=== PATIENT | female | born 1955 | race Caucasian/White ===

== ENCOUNTER 2016-12-11 13:16 | Inpatient (IN) | payer MEDICAID ==
[~2016-12-11] VITALS: Ht 165.1 cm; Wt 98.0 kg
[~2016-12-11 13:16] MED LIST: AMIT75TA2; ATEN50TA; CEPH250C PO; DOXY150C2 PO; FAMO-12; FENO145T20; FERR324T11; GLUC-202; GLYB5TAB8; HYDR-2551; INSLANTI; INSUINJ; LEVO137T3; LOSA50TA6; METF-371
[2016-12-11 14:17] LABS: Basophils # (auto) 0 uL; Basophils % (auto) 0.4 % (0.0-2.0); Eosinophils # (auto) 0.2 uL; Eosinophils % (auto) 2.3 % (0.0-7.0); Hematocrit 28.2 % (36.0-46.0); Hemoglobin 9.2 g/dL (12.2-16.2); Lymphocytes # (auto) 1.7 uL; Lymphocytes % (auto) 17.4 % (10.0-50.0); Mean Corpuscular Hemoglobin 28.4 pg (28.0-32.0); Mean Corpuscular Hgb Conc. 32.6 g/dL (32.0-36.0); Mean Corpuscular Volume 87.2 fL (80.0-100.0); Mean Platelet Volume 7.9 fL (6.9-10.8); Monocytes # (auto) 0.7 uL; Neutrophils % (auto) 72.9 % (37.0-80.0); Platelet Count (auto) 342 10^3/uL (140-450); Red Cell Distribution Width 14.3 % (11.8-14.3); White Blood Cell 9.7 10^3/uL (4.4-10.8)
[2016-12-11 14:35] LABS: Albumin 2.8 g/dL (3.4-5.0); BUN/Creatinine Ratio 20.6; Bilirubin, Total 0.3 mg/dL (0.2-1.0); Calcium 8.6 mg/dL (8.5-10.1); Potassium 4.5 mmol/L (3.5-5.1); Total Protein 8.1 g/dL (6.4-8.2)
[2016-12-12 00:09] LABS: B-Type Natriuretic Peptide 447.11 pg/mL (0-100)
[2016-12-12 00:12] LABS: Temperature: 23.9 C (20.0-25.0)
[2016-12-12] MEDS ORDERED: SODIUM CHLORIDE 0.9% 1,000 ML IV ONE (01:30)
[2016-12-12] MEDS ORDERED: SODIUM CHLORIDE 0.9% 1,000 ML IV SCH (01:44)
[2016-12-12] MEDS ORDERED: HYDROcodone-ACET 5/325MG TAB PO PRN (01:45)
[2016-12-12] MEDS ORDERED: DOCUSATE SOD 100 MG CAP PO PRN (01:45)
[2016-12-12] MEDS ORDERED: DEXTROSE (50%) 50ML SYRG IV PRN ×2 (01:45→11:15)
[2016-12-12] MEDS ORDERED: ONDANSETRON HCL 4 MG/2 ML VIAL IV PRN (01:45)
[2016-12-12 04:00] VITALS: BP 156/75
[2016-12-12] MEDS: ACCU-CHEK COMFORT CURVE STRIP VI SCH ×5 (04:00→21:48)
[2016-12-12 04:02] LABS: Urine Bilirubin Negative (Negative); Urine Blood Negative /uL (Negative); Urine Color Yellow (Yellow); Urine Glucose 1+ mg/dL (Normal); Urine Ketone Negative (Negative); Urine Nitrite Negative (Negative); Urine RBC 2 /hpf (0 - 4); Urine Squamous Epithelial Cell FEW /hpf (<5); Urine Urobilinogen Normal (Negative)
[2016-12-12] MEDS ORDERED: LOSA25TA9 PO (04:37)
[2016-12-12] MEDS ORDERED: LEVO112T35 PO (04:37)
[2016-12-12] MEDS ORDERED: ATEN100T PO ×2 (04:37)
[2016-12-12] MEDS ORDERED: HYDR12.56 PO (04:37)
[2016-12-12] MEDS ORDERED: ATOR20TA50 PO (04:37)
[2016-12-12] MEDS ORDERED: FER325T PO (04:37)
[2016-12-12] MEDS ORDERED: INSUINJ7 IJ (04:37)
[2016-12-12] MEDS ORDERED: AMIT75TA2 PO (04:37)
[2016-12-12] MEDS ORDERED: CHOL20007 PO (04:37)
[2016-12-12] MEDS ORDERED: FENO145T20 PO (04:37)
[2016-12-12] MEDS ORDERED: OMEP20CA74 PO (04:37)
[2016-12-12] MEDS ORDERED: INSLANTI SC (04:37)
[2016-12-12 04:39] VITALS: BP 156/75
[2016-12-12] MEDS: InsuLIN REG 1unit/0.01ml Soln (100units/ml) SC SCH ×5 (05:23→22:01)
[2016-12-12] MEDS: CLINDAMYCIN 600MG IV 50 ML IV SCH ×3 (05:51→21:46)
[2016-12-12 09:00] VITALS: BP 158/69
[2016-12-12] MEDS ORDERED: ENOXAPARIN SOD 30 MG/0.3 ML SYRINGE SC SCH (10:00)
[2016-12-12] MEDS: ENOXAPARIN SOD 40 MG/0.4 ML SYRINGE SC SCH (10:00)
[2016-12-12] MEDS: LOSARTAN POTASSIUM 25 MG TAB PO SCH (10:00)
[2016-12-12 13:00] VITALS: BP 153/71
[2016-12-12] MEDS ORDERED: POTASSIUM CHL 20 Meq TABLET PO ONE (15:30)
[2016-12-12] MEDS ORDERED: BUMETANIDE (0.25MG/ML) 4 ML VIAL IV ONE (15:30)
[2016-12-12 17:11] VITALS: BP 147/68
[2016-12-12] MEDS: AMITRIPTYLINE HCL 25 MG TAB PO SCH (21:45)
[2016-12-12] MEDS: ATORVASTATIN 20 MG TAB PO SCH (21:45)
[2016-12-12 22:00] VITALS: BP 161/80
[2016-12-12] MEDS: ACETAMINOPHEN 325 MG TAB PO PRN (22:00)
[2016-12-13] MEDS: CLINDAMYCIN 600MG IV 50 ML IV SCH ×3 (05:58→22:12)
[2016-12-13 06:22] LABS: Basophils # (auto) 0 uL; Basophils % (auto) 0.7 % (0.0-2.0); Eosinophils # (auto) 0.3 uL; Eosinophils % (auto) 4.3 % (0.0-7.0); Hematocrit 29.2 % (36.0-46.0); Hemoglobin 9.5 g/dL (12.2-16.2); Lymphocytes # (auto) 2.3 uL; Lymphocytes % (auto) 32.6 % (10.0-50.0); Mean Corpuscular Hemoglobin 28.3 pg (28.0-32.0); Mean Corpuscular Hgb Conc. 32.6 g/dL (32.0-36.0); Mean Corpuscular Volume 86.7 fL (80.0-100.0); Monocytes # (auto) 0.7 uL; Monocytes % (auto) 10.3 % (0.0-12.0); Neutrophils # (auto) 3.7 uL; Neutrophils % (auto) 52.1 % (37.0-80.0); Nucleated Red Blood Cells % 0.1 %; Platelet Count (auto) 353 10^3/uL (140-450); Red Cell Distribution Width 13.8 % (11.8-14.3); White Blood Cell 7.1 10^3/uL (4.4-10.8)
[2016-12-13 06:44] LABS: Albumin 2.5 g/dL (3.4-5.0); BUN/Creatinine Ratio 22.2; Bilirubin, Total 0.3 mg/dL (0.2-1.0); Calcium 8.5 mg/dL (8.5-10.1); Phosphorus 4.2 mg/dL (2.5-4.90); Potassium 4.3 mmol/L (3.5-5.1); Total Protein 7.5 g/dL (6.4-8.2)
[2016-12-13] MEDS: InsuLIN REG 1unit/0.01ml Soln (100units/ml) SC SCH ×4 (06:46→22:33)
[2016-12-13] MEDS: ACCU-CHEK COMFORT CURVE STRIP VI SCH ×4 (06:46→22:32)
[2016-12-13 09:03] VITALS: BP 119/52
[2016-12-13] MEDS: LOSARTAN POTASSIUM 25 MG TAB PO SCH (09:11)
[2016-12-13] MEDS: ENOXAPARIN SOD 40 MG/0.4 ML SYRINGE SC SCH (09:11)
[2016-12-13] MEDS: BUMETANIDE 1 MG TAB PO SCH (10:30)
[2016-12-13 13:00] VITALS: BP 158/69
[2016-12-13] MEDS ORDERED: MULTIPLE VITAMINS W/ MINERALS TAB PO ONE (15:15)
[2016-12-13 17:15] VITALS: BP 162/76
[2016-12-13 22:07] VITALS: BP 158/81
[2016-12-13] MEDS: ATORVASTATIN 20 MG TAB PO SCH (22:13)
[2016-12-13] MEDS: AMITRIPTYLINE HCL 25 MG TAB PO SCH (22:13)
[2016-12-13] MEDS: ASCORBIC ACID 500 MG TAB PO SCH (22:13)
[2016-12-14 05:05] VITALS: BP 126/53
[2016-12-14] MEDS: CLINDAMYCIN 600MG IV 50 ML IV SCH ×3 (06:19→21:50)
[2016-12-14] MEDS: ACCU-CHEK COMFORT CURVE STRIP VI SCH ×4 (06:20→22:18)
[2016-12-14 06:35] LABS: INR 1.08 (0.9-1.15); Prothrombin Time 11.8 sec (9.37-12.3)
[2016-12-14] MEDS: InsuLIN REG 1unit/0.01ml Soln (100units/ml) SC SCH ×4 (07:00→22:18)
[2016-12-14 08:15] VITALS: BP 147/67
[2016-12-14] MEDS: MULTIPLE VITAMINS W/ MINERALS TAB PO SCH (09:23)
[2016-12-14] MEDS: ASCORBIC ACID 500 MG TAB PO SCH ×2 (09:23→22:00)
[2016-12-14] MEDS: ENOXAPARIN SOD 40 MG/0.4 ML SYRINGE SC SCH (09:24)
[2016-12-14] MEDS: BUMETANIDE 1 MG TAB PO SCH (09:27)
[2016-12-14] MEDS: LOSARTAN POTASSIUM 25 MG TAB PO SCH (09:28)
[2016-12-14] MEDS ORDERED: ceFAZolin 1GM VL ONE (09:34)
[2016-12-14] MEDS ORDERED: BUPIVACAINE 0.75% INJ 10ML MPV SDV IJ ONE (09:34)
[2016-12-14] MEDS ORDERED: ceFAZolin 1GM/50ML D5W 50 ML IV ONE (09:55)
[2016-12-14] MEDS ORDERED: LABETALOL HCL 5 MG/ML 4ML SYRINGE IV PRN (10:15)
[2016-12-14] MEDS ORDERED: HYDROmorphone HCL 2 MG/ML VL IV PRN (10:15)
[2016-12-14] MEDS ORDERED: ONDANSETRON HCL 4 MG/2 ML VIAL IV ONE (10:15)
[2016-12-14] MEDS ORDERED: MIDAZOLAM HCL 1MG/1ML-2 ML VIAL IV PRN (10:15)
[2016-12-14] MEDS ORDERED: ePHEDrine SULFATE 50 MG/ML AMP IV PRN (10:15)
[2016-12-14] MEDS ORDERED: MORPHINE SULF INJ 2 MG/ML SYRINGE 1ML IV PRN (10:15)
[2016-12-14] MEDS ORDERED: ACCU-CHEK COMFORT CURVE STRIP VI ONE (10:15)
[2016-12-14] MEDS ORDERED: PROPOFOL 10 MG/ML 20 ML IV ONE (10:18)
[2016-12-14] MEDS ORDERED: fentaNYL CITRATE 100 MCG/2 ML VL ONE (10:18)
[2016-12-14] MEDS ORDERED: MIDAZOLAM HCL 1MG/1ML-2 ML VIAL ONE (10:18)
[2016-12-14] MEDS ORDERED: DEXAMETHASONE SOD PHOS 10MG/1ML VIAL INJ ONE (10:18)
[2016-12-14 11:21] VITALS: BP 122/63
[2016-12-14 13:38] VITALS: BP 122/63
[2016-12-14 17:03] VITALS: BP 141/76
[2016-12-14] MEDS: ATORVASTATIN 20 MG TAB PO SCH (21:51)
[2016-12-14] MEDS: AMITRIPTYLINE HCL 25 MG TAB PO SCH (21:51)
[2016-12-14] MEDS: ACETAMINOPHEN 325 MG TAB PO PRN (21:51)
[2016-12-14 22:00] VITALS: BP 140/73
[2016-12-14] MEDS ORDERED: ASCORBIC ACID 500 MG TAB PO SCH (22:00)
[2016-12-14] MEDS: INSULIN DETEMIR(LEVEMIR) 1unit/0.01ml Soln (100units/ml) SC SCH (22:18)
[2016-12-15 05:00] VITALS: BP 131/68
[2016-12-15] MEDS: CLINDAMYCIN 600MG IV 50 ML IV SCH ×3 (06:33→22:15)
[2016-12-15] MEDS: ACCU-CHEK COMFORT CURVE STRIP VI SCH ×4 (06:34→20:24)
[2016-12-15] MEDS: INSULIN DETEMIR(LEVEMIR) 1unit/0.01ml Soln (100units/ml) SC SCH ×2 (06:58→22:16)
[2016-12-15] MEDS: InsuLIN REG 1unit/0.01ml Soln (100units/ml) SC SCH ×4 (06:58→20:24)
[2016-12-15 07:01] LABS: Basophils # (auto) 0 uL; Basophils % (auto) 0.1 % (0.0-2.0); Eosinophils # (auto) 0 uL; Eosinophils % (auto) 0.1 % (0.0-7.0); Hematocrit 31.8 % (36.0-46.0); Hemoglobin 10.6 g/dL (12.2-16.2); Lymphocytes # (auto) 1.2 uL; Lymphocytes % (auto) 12.2 % (10.0-50.0); Mean Corpuscular Hemoglobin 28.9 pg (28.0-32.0); Mean Corpuscular Hgb Conc. 33.2 g/dL (32.0-36.0); Mean Corpuscular Volume 87.1 fL (80.0-100.0); Mean Platelet Volume 7.8 fL (6.9-10.8); Monocytes # (auto) 0.7 uL; Monocytes % (auto) 6.7 % (0.0-12.0); Neutrophils % (auto) 80.9 % (37.0-80.0); Platelet Count (auto) 403 10^3/uL (140-450); Red Cell Distribution Width 14.1 % (11.8-14.3); White Blood Cell 9.9 10^3/uL (4.4-10.8)
[2016-12-15 07:23] LABS: BUN/Creatinine Ratio 26.6; Calcium 8.7 mg/dL (8.5-10.1); Potassium 4.6 mmol/L (3.5-5.1)
[2016-12-15 09:00] VITALS: BP 132/71
[2016-12-15] MEDS ORDERED: MULTIPLE VITAMINS W/ MINERALS TAB PO SCH (10:00)
[2016-12-15] MEDS: BUMETANIDE 1 MG TAB PO SCH (11:01)
[2016-12-15] MEDS: LOSARTAN POTASSIUM 25 MG TAB PO SCH (11:02)
[2016-12-15] MEDS: ENOXAPARIN SOD 40 MG/0.4 ML SYRINGE SC SCH (11:03)
[2016-12-15] MEDS: SODIUM CHLORIDE 0.9% 1,000 ML IV SCH (11:45)
[2016-12-15] MEDS ORDERED: SODIUM CHLORIDE 0.9% 500 ML IV ONE (11:45)
[2016-12-15] MEDS: DOXYCYCLINE HYC 100MG/250ML 250 ML IV SCH (11:56)
[2016-12-15] MEDS: MULTIPLE VITAMINS W/ MINERALS TAB PO SCH (11:56)
[2016-12-15] MEDS: ASCORBIC ACID 500 MG TAB PO SCH ×2 (11:56→22:16)
[2016-12-15 13:00] VITALS: BP 124/59
[2016-12-15] MEDS ORDERED: InsuLIN REG 1unit/0.01ml Soln (100units/ml) SC SCH (14:00)
[2016-12-15 16:37] VITALS: BP 131/68
[2016-12-15 21:48] VITALS: BP 149/82
[2016-12-15] MEDS: AMITRIPTYLINE HCL 25 MG TAB PO SCH (22:15)
[2016-12-15] MEDS: ATORVASTATIN 20 MG TAB PO SCH (22:16)
[2016-12-16] MEDS: InsuLIN REG 1unit/0.01ml Soln (100units/ml) SC SCH ×4 (00:32→13:20)
[2016-12-16] MEDS: ACCU-CHEK COMFORT CURVE STRIP VI SCH ×4 (00:32→12:00)
[2016-12-16] MEDS: DOXYCYCLINE HYC 100MG/250ML 250 ML IV SCH ×2 (00:32→12:42)
[2016-12-16 04:56] VITALS: BP 136/77
[2016-12-16] MEDS: SODIUM CHLORIDE 0.9% 1,000 ML IV SCH ×2 (05:03→08:35)
[2016-12-16] MEDS: CLINDAMYCIN 600MG IV 50 ML IV SCH (06:06)
[2016-12-16] MEDS: INSULIN DETEMIR(LEVEMIR) 1unit/0.01ml Soln (100units/ml) SC SCH (06:06)
[2016-12-16 07:07] LABS: Albumin 2.7 g/dL (3.4-5.0); BUN/Creatinine Ratio 32.4; Calcium 8.8 mg/dL (8.5-10.1)
[2016-12-16 07:16] LABS: Bilirubin, Total 0.3 mg/dL (0.2-1.0); Total Protein 7.4 g/dL (6.4-8.2)
[2016-12-16 08:28] VITALS: BP 101/59
[2016-12-16] MEDS: ENOXAPARIN SOD 40 MG/0.4 ML SYRINGE SC SCH (08:47)
[2016-12-16] MEDS: ASCORBIC ACID 500 MG TAB PO SCH (08:47)
[2016-12-16] MEDS: MULTIPLE VITAMINS W/ MINERALS TAB PO SCH (08:47)
[2016-12-16 12:11] VITALS: BP 138/84
[2016-12-16 14:45] VITALS: BP 132/71
[2016-12-16 17:01] VITALS: BP 133/74
== END 2016-12-16 18:35 | disposition home or self-care (01) | DRG 364 ==
LOC: ER 13:16 → OVERFLOW 13:17 → EAST 12-12 03:30
PROVIDERS: ADMIT Internal Medicine; ATTEND Internal Medicine
PROC: 0KBW0ZZ Excision of Left Foot Muscle, Open Approach (ICD-10-PCS; principal; 2016-12-14 10:05)
DX: E11.621 Type 2 diabetes mellitus with foot ulcer (principal); L97.529 Non-pressure chronic ulcer of other part of left foot with unspecified severity; N17.0 Acute kidney failure with tubular necrosis; E11.21 Type 2 diabetes mellitus with diabetic nephropathy; E44.0 Moderate protein-calorie malnutrition; L03.116 Cellulitis of left lower limb; E87.1 Hypo-osmolality and hyponatremia; I50.9 Heart failure, unspecified; N18.9 Chronic kidney disease, unspecified; D64.9 Anemia, unspecified
CPT/HCPCS: 36415; 71010; 73630; 73700; 74176; 76775; 80048; 80053; 81001; 82270; 82570; 82728; 82947; 82962; 83036; 83540; 83550; 83605; 83880; 84100; 84156; 84300; 84484; 85025; 85610; 85730; 86850; 86900; 86901; 87040; 87077; 87086; 87186; 87205; 93005; 93306; 93926; 96360; J0690; J1100; J1815; J2250; J2704; J3490

== ENCOUNTER → 2019-04-02 | Outpatient (CLI) | payer MEDICAID, OTHER ==
[~2019-04-02] MED LIST changes: -AMIT75TA2; +AMIT75TA2 PO; +ASP81EC PO; -ATEN50TA; +ATOR20TA50 PO; -CEPH250C PO; +CHOL20007 PO; -DOXY150C2 PO; +ESTR0.3T PO; -FAMO-12; -FENO145T20; +FENO145T27 PO; +FER325T PO; -FERR324T11; +FURO1TAB31 PO; -GLUC-202; -GLYB5TAB8; -HYDR-2551; -INSLANTI; +INSLANTI SC; -INSUINJ; +INSUINJ7 IJ; +LEVO112T35 PO; -LEVO137T3; -LOSA50TA6; +MAGN400T40 PO; +MET25T PO; -METF-371; +NITR1CAP23 PO; +OMEP20CA74 PO; +ROSU20TA14 PO; +SEMA2INJ SC; +TICA90TA PO
--- NOTE | 2019-04-02 13:28 | NUR ---
PICC line removal Pt presented with RUE single lumen PICC line. Written order from Srinivasan POMPA to D/C PICC line today. Insertion site has no redness, swelling, or leaking noted. Pt denies any pain at site. Dressing is clean, dry, and in tact. PICC line removed with proper technique, catheter fully intact at 44 cm in length. Last visit noted insertion length at 44 cm. Occlusive pressure dressing applied to site. No bleeding noted. Patient tolerated well. D/C home with son.
== END | disposition home or self-care (01) ==
LOC: CATH 13:00
DX: Z45.2 Encounter for adjustment and management of vascular access device (principal)

== ENCOUNTER → 2019-04-26 | Outpatient (CLI) | payer OTHER, MEDICAID | END | disposition home or self-care (01) | LOC: Rad HDHVI 09:58 | PROVIDERS: ATTEND Internal Medicine Cardiovascular Disease | DX: M79.662 Pain in left lower leg (principal) | CPT/HCPCS: 93926 ==

== ENCOUNTER → 2019-09-29 | Outpatient (CLI) | payer OTHER, MEDICAID ==
[~2019-09-29] MED LIST changes: -ASP81EC PO; +ASPI-394 PO
== END | disposition home or self-care (01) ==
LOC: Rad HDHVI 13:22
PROVIDERS: ATTEND Internal Medicine Cardiovascular Disease
DX: I50.43 Acute on chronic combined systolic (congestive) and diastolic (congestive) heart failure (principal); R07.89 Other chest pain; Z95.820 Peripheral vascular angioplasty status with implants and grafts
CPT/HCPCS: 93306

== ENCOUNTER → 2019-11-15 | Outpatient (CLI) | payer OTHER, MEDICAID ==
[~2019-11-15] VITALS: Ht 167.6 cm; Wt 83.9 kg
[~2019-11-15] MED LIST changes: +ADENOSINE 70 MG in GIVE UN-DILUTED 0 ML IV ONE; +ADENOSINE 90 MG/30 ML INJ IV ONE
== END | disposition home or self-care (01) ==
LOC: Rad HDHVI 14:19
PROVIDERS: ATTEND Internal Medicine Cardiovascular Disease
DX: I11.0 Hypertensive heart disease with heart failure (principal); I50.43 Acute on chronic combined systolic (congestive) and diastolic (congestive) heart failure; I25.10 Atherosclerotic heart disease of native coronary artery without angina pectoris; E11.9 Type 2 diabetes mellitus without complications; E78.00 Pure hypercholesterolemia, unspecified; R07.89 Other chest pain; Z95.820 Peripheral vascular angioplasty status with implants and grafts
CPT/HCPCS: 78452; 93005; 96374; 96375; A9500; J0153

== ENCOUNTER → 2021-07-04 | Outpatient (CLI) | payer OTHER, MEDICAID ==
[~2021-07-04] VITALS: Ht 165.1 cm; Wt 86.2 kg
[~2021-07-04] MED LIST changes: -ADENOSINE 70 MG in GIVE UN-DILUTED 0 ML IV ONE; +ADENOSINE 72 MG in GIVE UN-DILUTED 0 ML IV ONE; -AMIT75TA2 PO; +AMIT75TA4 PO; +LEVO112T2 PO; -LEVO112T35 PO
== END | disposition home or self-care (01) ==
LOC: Rad HDHVI 09:34
PROVIDERS: ATTEND Internal Medicine Cardiovascular Disease
DX: I10 Essential (primary) hypertension (principal); I25.10 Atherosclerotic heart disease of native coronary artery without angina pectoris; E78.5 Hyperlipidemia, unspecified; E11.9 Type 2 diabetes mellitus without complications; R07.9 Chest pain, unspecified; Z82.49 Family history of ischemic heart disease and other diseases of the circulatory system
CPT/HCPCS: 78452; 93005; 96374; 96375; A9500; J0153

== ENCOUNTER → 2021-09-07 | Outpatient (CLI) | payer OTHER, MEDICAID ==
[~2021-09-07] MED LIST changes: -ADENOSINE 72 MG in GIVE UN-DILUTED 0 ML IV ONE; -ADENOSINE 90 MG/30 ML INJ IV ONE; +CIPR-173 PO; +INSLISPI SC; +SODI650T PO
[2021-09-07 10:25] VITALS: BP 143/57
[2021-09-07 10:40] VITALS: BP 117/54
[2021-09-07 12:34] LABS: Basophils # (auto) 0 10 ^3/uL (0-0.2); Basophils % (auto) 0.3 % (0.0-2.0); Eosinophils # (auto) 0.2 10 ^3/uL (0-0.8); Eosinophils % (auto) 2.9 % (0.0-7.0); Hematocrit 29.7 % (36.0-46.0); Hemoglobin 9.5 g/dL (12.2-16.2); Lymphocytes # (auto) 1.5 10 ^3/uL (0.4-5.4); Lymphocytes % (auto) 24.1 % (10.0-50.0); Mean Corpuscular Hemoglobin 29.6 pg (28.0-32.0); Mean Corpuscular Volume 92.5 fL (80.0-100.0); Monocytes # (auto) 0.4 10 ^3/uL (0-1.3); Monocytes % (auto) 6.6 % (0.0-12.0); Neutrophils # (auto) 4.1 10 ^3/uL (1.6-8.6); Neutrophils % (auto) 66.1 % (37.0-80.0); Red Blood Cells 3.21 10^6/uL (4.0-5.20); White Blood Cell 6.2 10^3/uL (4.4-10.8)
[2021-09-07 12:51] LABS: Potassium 3.8 mmol/L (3.5-5.1)
[2021-09-07 12:53] LABS: INR 0.99 (0.9-1.15); Partial Thromboplastin Time 25.6 sec (24.6-33.4)
[2021-09-07 12:58] LABS: BUN/Creatinine Ratio 16.1; Calcium 8.7 mg/dL (8.5-10.1)
== END | disposition home or self-care (01) ==
LOC: Rad HDHVI 10:04
PROVIDERS: ATTEND Internal Medicine Cardiovascular Disease
DX: Z01.818 Encounter for other preprocedural examination (principal); R06.02 Shortness of breath; I10 Essential (primary) hypertension; I25.5 Ischemic cardiomyopathy; M47.814 Spondylosis without myelopathy or radiculopathy, thoracic region
CPT/HCPCS: 36415; 71046; 80048; 85025; 85610; 85730; G0463

== ENCOUNTER → 2021-09-10 | Outpatient (CLI) | payer OTHER, MEDICAID ==
[~2021-09-10] MED LIST changes: +ANGIOMAX 250 MG VIAL IV ONE; -ATOR20TA50 PO; -CHOL20007 PO; -INSUINJ7 IJ; +IODIXANOL 320MG/ML 100ML BTL IV ONE; +LIDOCAINE 2%HCL (LOCAL ANESTH.) INJ 10ml MDV ONE; -MAGN400T40 PO; -MET25T PO; +MIDAZOLAM HCL 2MG/2ML 2ml VIAL (1mg/ml) ONE; -NITR1CAP23 PO; +SODIUM CHL 0.9% 50 ML ONE; +SODIUM CHLORIDE 0.9% 1,000 ML IV ONE; +fentaNYL CITRATE 100 MCG/2 ML VL ONE
[2021-09-10 10:58] VITALS: BP 142/61
[2021-09-10 14:00] VITALS: BP 178/80
== END | disposition home or self-care (01) ==
LOC: CHF HDHVI 10:57
PROVIDERS: ATTEND Internal Medicine Cardiovascular Disease
DX: R94.4 Abnormal results of kidney function studies (principal); E86.0 Dehydration; I10 Essential (primary) hypertension; I25.10 Atherosclerotic heart disease of native coronary artery without angina pectoris; E78.5 Hyperlipidemia, unspecified; E11.40 Type 2 diabetes mellitus with diabetic neuropathy, unspecified; E11.51 Type 2 diabetes mellitus with diabetic peripheral angiopathy without gangrene; Z90.710 Acquired absence of both cervix and uterus; Z79.02 Long term (current) use of antithrombotics/antiplatelets; Z79.82 Long term (current) use of aspirin; Z79.4 Long term (current) use of insulin; Z95.1 Presence of aortocoronary bypass graft
CPT/HCPCS: 36415; 82565; 84520; 96360; 96361; G0463; J7040; 96366

== ENCOUNTER 2021-09-11 10:48 | Day surgery (SDC) | payer OTHER, MEDICAID ==
[~2021-09-11] VITALS: Ht 167.6 cm; Wt 86.2 kg
[~2021-09-11 10:48] MED LIST changes: -ANGIOMAX 250 MG VIAL IV ONE; -IODIXANOL 320MG/ML 100ML BTL IV ONE; -LIDOCAINE 2%HCL (LOCAL ANESTH.) INJ 10ml MDV ONE; -MIDAZOLAM HCL 2MG/2ML 2ml VIAL (1mg/ml) ONE; -SODIUM CHL 0.9% 50 ML ONE; -SODIUM CHLORIDE 0.9% 1,000 ML IV ONE; -fentaNYL CITRATE 100 MCG/2 ML VL ONE
[2021-09-11] MEDS ORDERED: GENTAMICIN PER PHARMACY 0 ML IV ONE ×2 (13:30)
[2021-09-11] MEDS ORDERED: GENTAMICIN SULFATE 180 MG in D5W 5% 100 ML IV ONE (14:00)
[2021-09-11] MEDS ORDERED: cloNIDine HCL 0.1 MG TAB PO ONE (14:30)
== END 2021-09-11 15:20 | disposition home or self-care (01) ==
LOC: CATH 10:48
PROVIDERS: ATTEND Internal Medicine Cardiovascular Disease
DX: R94.39 Abnormal result of other cardiovascular function study (principal); I25.10 Atherosclerotic heart disease of native coronary artery without angina pectoris; I10 Essential (primary) hypertension; E78.5 Hyperlipidemia, unspecified; E11.40 Type 2 diabetes mellitus with diabetic neuropathy, unspecified; E11.21 Type 2 diabetes mellitus with diabetic nephropathy; E11.51 Type 2 diabetes mellitus with diabetic peripheral angiopathy without gangrene; Z79.4 Long term (current) use of insulin; Z79.82 Long term (current) use of aspirin; Z79.02 Long term (current) use of antithrombotics/antiplatelets; Z90.710 Acquired absence of both cervix and uterus; Z95.5 Presence of coronary angioplasty implant and graft; Z98.891 History of uterine scar from previous surgery; Z82.49 Family history of ischemic heart disease and other diseases of the circulatory system; Z83.3 Family history of diabetes mellitus; Z80.1 Family history of malignant neoplasm of trachea, bronchus and lung; Z87.19 Personal history of other diseases of the digestive system; Z20.822 Contact with and (suspected) exposure to COVID-19
CPT/HCPCS: 92978; 93454; C1760; C1769; C1887; C1894; J0583; J1580; J1644; J2001; J2250; J3010; J7030; J7060; Q9967; U0003; 99152

== ENCOUNTER → 2021-11-20 | Outpatient (CLI) | payer OTHER, MEDICAID ==
[~2021-11-20] MED LIST changes: +CIPR250T3 PO; +MULT-1018 PO; +TEMA15CA2 PO
[2021-11-20 09:28] VITALS: BP 135/64
[2021-11-20 09:58] VITALS: BP 132/63
[2021-11-20 12:46] LABS: Basophils # (auto) 0 10 ^3/uL (0-0.2); Basophils % (auto) 0.4 % (0.0-2.0); Eosinophils # (auto) 0.2 10 ^3/uL (0-0.8); Hematocrit 31.7 % (36.0-46.0); Hemoglobin 10.1 g/dL (12.2-16.2); Lymphocytes % (auto) 35.3 % (10.0-50.0); Mean Corpuscular Hemoglobin 30.2 pg (28.0-32.0); Mean Corpuscular Hgb Conc. 31.8 g/dL (32.0-36.0); Mean Corpuscular Volume 94.9 fL (80.0-100.0); Monocytes # (auto) 0.5 10 ^3/uL (0-1.3); Neutrophils % (auto) 52.3 % (37.0-80.0); Red Blood Cells 3.34 10^6/uL (4.0-5.20); Red Cell Distribution Width 13.4 % (11.8-14.3); White Blood Cell 5.8 10^3/uL (4.4-10.8)
[2021-11-20 12:58] LABS: BUN/Creatinine Ratio 14.4; Calcium 8.5 mg/dL (8.5-10.1)
[2021-11-20 13:11] LABS: INR 1.03 (0.9-1.15); Partial Thromboplastin Time 26.5 sec (24.6-33.4)
== END | disposition home or self-care (01) ==
LOC: Rad HDHVI 09:15
PROVIDERS: ATTEND Internal Medicine Cardiovascular Disease
DX: Z01.818 Encounter for other preprocedural examination (principal); R06.02 Shortness of breath; I70.0 Atherosclerosis of aorta; M47.814 Spondylosis without myelopathy or radiculopathy, thoracic region
CPT/HCPCS: 36415; 71046; 80048; 85025; 85610; 85730; G0463

== ENCOUNTER 2021-11-22 07:01 | Day surgery (SDC) | payer OTHER, MEDICAID ==
[~2021-11-22] VITALS: Ht 167.6 cm; Wt 88.0 kg
[2021-11-22] VITALS (7 sets, daily range): BP systolic 153–166; BP diastolic 74–88
[~2021-11-22 07:01] MED LIST changes: -CIPR-173 PO; -FER325T PO
[2021-11-22] MEDS ORDERED: ANGIOMAX 250 MG VIAL IV ONE (09:42)
[2021-11-22] MEDS ORDERED: LIDOCAINE 2%HCL (LOCAL ANESTH.) INJ 20ML MDV ONE (09:43)
[2021-11-22] MEDS ORDERED: SODIUM CHL 0.9% 50 ML ONE (09:43)
[2021-11-22] MEDS ORDERED: MIDAZOLAM HCL 2MG/2ML 2ml VIAL (1mg/ml) ONE (09:43)
[2021-11-22] MEDS ORDERED: fentaNYL CITRATE 100 MCG/2 ML VL ONE (09:43)
[2021-11-22] MEDS ORDERED: IOHEXOL 350 MG/ML 100ML IJ ONE (09:44)
[2021-11-22] MEDS ORDERED: IODIXANOL 320MG/ML 100ML BTL IV ONE (09:44)
[2021-11-22] MEDS ORDERED: ASPirin 81 mg TAB ONE (10:16)
[2021-11-22] MEDS ORDERED: TICAGRELOR 90 MG TAB ONE ×2 (10:16→10:21)
== END 2021-11-22 12:40 | disposition home or self-care (01) ==
LOC: CATH 07:01
PROVIDERS: ATTEND Internal Medicine Cardiovascular Disease
DX: R07.9 Chest pain, unspecified (principal); I25.10 Atherosclerotic heart disease of native coronary artery without angina pectoris; N18.1 Chronic kidney disease, stage 1; I12.9 Hypertensive chronic kidney disease with stage 1 through stage 4 chronic kidney disease, or unspecified chronic kidney disease; E78.5 Hyperlipidemia, unspecified; I25.2 Old myocardial infarction; Z90.710 Acquired absence of both cervix and uterus; Z82.49 Family history of ischemic heart disease and other diseases of the circulatory system; Z83.3 Family history of diabetes mellitus; Z87.891 Personal history of nicotine dependence; Z80.1 Family history of malignant neoplasm of trachea, bronchus and lung; Z80.0 Family history of malignant neoplasm of digestive organs; Z20.822 Contact with and (suspected) exposure to COVID-19
CPT/HCPCS: 93454; 93571; C1760; C1769; C1874; C1887; C1894; C9600; J0583; J1644; J2250; J3010; Q9967; U0003; 99152

== ENCOUNTER → 2022-01-25 | Outpatient (CLI) | payer OTHER, MEDICAID | END | disposition home or self-care (01) | LOC: Rad HDHVI 13:01 | PROVIDERS: ATTEND Internal Medicine Cardiovascular Disease | DX: R07.89 Other chest pain (principal); E78.5 Hyperlipidemia, unspecified | CPT/HCPCS: 93306 ==

== ENCOUNTER → 2022-03-13 | Outpatient (CLI) | payer MEDICAID ==
[~2022-03-13] VITALS: Ht 167.6 cm; Wt 86.2 kg
[~2022-03-13] MED LIST changes: +ADENOSINE 72 MG in GIVE UN-DILUTED 0 ML IV ONE; +ADENOSINE 90 MG/30 ML INJ IV ONE
[2022-03-13 16:16] LABS: Urine Blood Negative /uL (Negative); Urine Specific Gravity 1.008 (1.001-1.035)
== END | disposition home or self-care (01) ==
LOC: Rad HDHVI 14:00
PROVIDERS: ATTEND Internal Medicine Cardiovascular Disease
DX: N39.0 Urinary tract infection, site not specified (principal)
CPT/HCPCS: 78452; 81003; 87086; 93005; 96374; 96375; J0153

== ENCOUNTER 2022-05-10 15:59 | Inpatient (IN) | payer OTHER, MEDICAID ==
[~2022-05-10] VITALS: Ht 167.6 cm; Wt 91.6 kg
[~2022-05-10 15:59] MED LIST changes: -ADENOSINE 72 MG in GIVE UN-DILUTED 0 ML IV ONE; -ADENOSINE 90 MG/30 ML INJ IV ONE
[2022-05-10] MEDS ORDERED: HYDROcodone-ACET 10/325MG TAB PO ONE (16:15)
[2022-05-10 16:39] LABS: Basophils # (auto) 0 10 ^3/uL (0-0.2); Hemoglobin 7.8 g/dL (12.2-16.2); Monocytes # (auto) 0.4 10 ^3/uL (0-1.3)
[2022-05-10 16:41] LABS: Basophils % (auto) 0.4 % (0.0-2.0); Eosinophils # (auto) 0 10 ^3/uL (0-0.8); Eosinophils % (auto) 0.7 % (0.0-7.0); Lymphocytes # (auto) 0.9 10 ^3/uL (0.4-5.4); Lymphocytes % (auto) 12.5 % (10.0-50.0); Mean Corpuscular Hgb Conc. 32.5 g/dL (32.0-36.0); Mean Corpuscular Volume 92.4 fL (80.0-100.0); Monocytes % (auto) 6.1 % (0.0-12.0); Neutrophils # (auto) 5.6 10 ^3/uL (1.6-8.6); Neutrophils % (auto) 80.3 % (37.0-80.0); Red Blood Cells 2.59 10^6/uL (4.0-5.20); Red Cell Distribution Width 15.4 % (11.8-14.3); White Blood Cell 6.9 10^3/uL (4.4-10.8)
[2022-05-10 16:55] LABS: Albumin 2.9 g/dL (3.4-5.0); BUN/Creatinine Ratio 23.3; Calcium 8.6 mg/dL (8.5-10.1); Potassium 4.2 mmol/L (3.5-5.1)
[2022-05-10 16:58] LABS: Bilirubin, Total 0.5 mg/dL (0.2-1.0); Total Protein 6.6 g/dL (6.4-8.2)
[2022-05-10 18:53] LABS: Urine Bacteria FEW /hpf (None Seen); Urine Blood 3+ /uL (Negative); Urine Specific Gravity 1.011 (1.001-1.035); Urine WBC 82 /hpf (0 - 5)
[2022-05-10] MEDS ORDERED: cefTRIAXone SOD 1,000 MG VL IM ONE (20:15)
[2022-05-10] MEDS ORDERED: AZITHROMYCIN 250 MG TAB PO ONE (21:30)
[2022-05-10] MEDS ORDERED: ACETAMINOPHEN 325 MG TAB PO PRN (22:30)
[2022-05-10] MEDS ORDERED: ALBUMIN 25% 100 ML IV ONE (22:30)
[2022-05-10] MEDS ORDERED: DEXTROSE (50%) 50ML SYRG IV PRN (22:30)
[2022-05-10] MEDS ORDERED: HEPARIN SODIUM (PORCINE) 5000 UNITS/ML 1ML VIAL SC ONE (22:30)
[2022-05-10] MEDS ORDERED: ONDANSETRON HCL 4 MG/2 ML VIAL IV PRN (22:30)
[2022-05-10] MEDS ORDERED: IBUPROFEN 600 MG TAB PO PRN (23:00)
[2022-05-11] MEDS ORDERED: NITROGLYCERIN 0.4 MG SL TAB SL PRN
[2022-05-11] MEDS ORDERED: MORPHINE SULFATE INJ 2 MG/ml SYRG IV PRN
[2022-05-11] MEDS: cefTRIAXone 1GM/50ML D5W 50 ML IV SCH ×2 (00:10→21:15)
[2022-05-11] MEDS: AZITHROMYCIN 500MG/ 250ML 250 ML IV SCH ×2 (02:11→22:10)
[2022-05-11 05:49] LABS: Basophils # (auto) 0 10 ^3/uL (0-0.2); Basophils % (auto) 0.3 % (0.0-2.0); Eosinophils # (auto) 0.1 10 ^3/uL (0-0.8); Monocytes # (auto) 0.4 10 ^3/uL (0-1.3); Neutrophils # (auto) 4.6 10 ^3/uL (1.6-8.6); Nucleated Red Blood Cells % 0.1 %
[2022-05-11 05:52] LABS: Hematocrit 22.1 % (36.0-46.0); Hemoglobin 7.2 g/dL (12.2-16.2); Lymphocytes # (auto) 1.3 10 ^3/uL (0.4-5.4); Lymphocytes % (auto) 19.7 % (10.0-50.0); Mean Corpuscular Hemoglobin 30.4 pg (28.0-32.0); Mean Corpuscular Hgb Conc. 32.6 g/dL (32.0-36.0); Mean Corpuscular Volume 93.3 fL (80.0-100.0); Monocytes % (auto) 5.5 % (0.0-12.0); Neutrophils % (auto) 72.5 % (37.0-80.0); Red Blood Cells 2.36 10^6/uL (4.0-5.20); Red Cell Distribution Width 15.8 % (11.8-14.3); White Blood Cell 6.4 10^3/uL (4.4-10.8)
[2022-05-11] MEDS: SODIUM CHLOR 0.9% PF (SALINE LOCK) 10ML VIAL/SYR IV SCH ×3 (06:05→22:03)
[2022-05-11] MEDS: HYDROcodone-ACET 5/325MG TAB PO PRN ×3 (06:05→19:43)
[2022-05-11 06:25] LABS: Albumin 3.1 g/dL (3.4-5.0); BUN/Creatinine Ratio 21.1; Calcium 8.5 mg/dL (8.5-10.1)
[2022-05-11 06:27] LABS: Bilirubin, Total 0.5 mg/dL (0.2-1.0); Total Protein 7.2 g/dL (6.4-8.2)
[2022-05-11] MEDS: ACCU-CHEK COMFORT CURVE STRIP VI SCH ×4 (06:39→22:10)
[2022-05-11] MEDS: InsuLIN REG 1unit/0.01ml Soln (100units/ml) SC SCH ×4 (06:49→22:12)
[2022-05-11] MEDS: LEVOTHYROXINE SODIUM 112 MCG TAB PO SCH (06:49)
[2022-05-11 07:53] LABS: Potassium 4.3 mmol/L (3.5-5.1)
[2022-05-11] MEDS: FAMOTIDINE (10MG/ML) 2ML VL IV SCH ×2 (11:03→21:17)
[2022-05-11] MEDS: B-COMPLEX W/ C & FOLIC ACID(NEPHROVITE TAB) PO SCH (11:03)
[2022-05-11] MEDS: FUROSEMIDE 40 MG/4 ML VIAL IV SCH (11:12)
[2022-05-11] MEDS: HEPARIN SODIUM (PORCINE) 5000 UNITS/ML 1ML VIAL SC SCH ×2 (11:15→22:00)
[2022-05-11 13:44] VITALS: BP 118/65
[2022-05-11] MEDS ORDERED: dilTIAZem 25 MG/5 ML VIAL IV PRN (14:45)
[2022-05-11] MEDS ORDERED: dilTIAZem HCL 60 MG TAB GT SCH (14:45)
[2022-05-11 17:08] VITALS: BP 118/65
[2022-05-11 22:00] VITALS: BP 112/53
[2022-05-11] MEDS: ATORVASTATIN 20 MG TAB PO SCH (22:02)
[2022-05-12 04:53] LABS: Protein, Urine 90.2 mg/dL (0.0-11.9)
[2022-05-12 05:00] VITALS: BP 111/59
[2022-05-12] MEDS: SODIUM CHLOR 0.9% PF (SALINE LOCK) 10ML VIAL/SYR IV SCH ×3 (06:00→22:01)
[2022-05-12 06:12] LABS: Basophils # (auto) 0 10 ^3/uL (0-0.2); Eosinophils # (auto) 0.2 10 ^3/uL (0-0.8); Hemoglobin 7.2 g/dL (12.2-16.2); Mean Corpuscular Volume 93.4 fL (80.0-100.0); Monocytes # (auto) 0.6 10 ^3/uL (0-1.3); Nucleated Red Blood Cells % 0.1 %; White Blood Cell 7.7 10^3/uL (4.4-10.8)
[2022-05-12 06:15] LABS: Basophils % (auto) 0.6 % (0.0-2.0); Eosinophils % (auto) 2.9 % (0.0-7.0); Hematocrit 21.9 % (36.0-46.0); Lymphocytes # (auto) 1.6 10 ^3/uL (0.4-5.4); Lymphocytes % (auto) 21.2 % (10.0-50.0); Mean Corpuscular Hemoglobin 30.7 pg (28.0-32.0); Mean Corpuscular Hgb Conc. 32.9 g/dL (32.0-36.0); Monocytes % (auto) 7.8 % (0.0-12.0); Neutrophils # (auto) 5.2 10 ^3/uL (1.6-8.6); Neutrophils % (auto) 67.5 % (37.0-80.0); Red Blood Cells 2.34 10^6/uL (4.0-5.20); Red Cell Distribution Width 15.7 % (11.8-14.3)
[2022-05-12] MEDS: InsuLIN REG 1unit/0.01ml Soln (100units/ml) SC SCH ×5 (06:17→21:58)
[2022-05-12] MEDS: ACCU-CHEK COMFORT CURVE STRIP VI SCH ×4 (06:52→22:00)
[2022-05-12] MEDS: LEVOTHYROXINE SODIUM 112 MCG TAB PO SCH (06:52)
[2022-05-12] MEDS: DOCUSATE SOD 100 MG CAP PO PRN ×2 (07:11→23:07)
[2022-05-12] MEDS: HYDROcodone-ACET 5/325MG TAB PO PRN ×2 (07:12→20:41)
[2022-05-12 09:00] VITALS: BP 110/58
[2022-05-12] MEDS: B-COMPLEX W/ C & FOLIC ACID(NEPHROVITE TAB) PO SCH (09:50)
[2022-05-12] MEDS: FAMOTIDINE (10MG/ML) 2ML VL IV SCH ×2 (09:50→21:59)
[2022-05-12] MEDS: ASPirin-EC 81 mg tab PO SCH (09:51)
[2022-05-12] MEDS: FUROSEMIDE 40 MG/4 ML VIAL IV SCH (10:00)
[2022-05-12] MEDS: HEPARIN SODIUM (PORCINE) 5000 UNITS/ML 1ML VIAL SC SCH ×2 (10:00→22:00)
[2022-05-12 12:44] VITALS: BP 104/64
[2022-05-12 17:00] VITALS: BP_DIAS 133
[2022-05-12] MEDS: cefTRIAXone 1GM/50ML D5W 50 ML IV SCH (20:47)
[2022-05-12] MEDS: ATORVASTATIN 20 MG TAB PO SCH (21:59)
[2022-05-12] MEDS: AZITHROMYCIN 500MG/ 250ML 250 ML IV SCH (21:59)
[2022-05-12 22:00] VITALS: BP 129/68
[2022-05-13 05:00] VITALS: BP 114/37
[2022-05-13] MEDS: LEVOTHYROXINE SODIUM 112 MCG TAB PO SCH (06:22)
[2022-05-13] MEDS: ACCU-CHEK COMFORT CURVE STRIP VI SCH ×3 (06:27→17:00)
[2022-05-13] MEDS: InsuLIN REG 1unit/0.01ml Soln (100units/ml) SC SCH ×3 (06:28→17:00)
[2022-05-13] MEDS: SODIUM CHLOR 0.9% PF (SALINE LOCK) 10ML VIAL/SYR IV SCH ×2 (06:36→12:25)
[2022-05-13] MEDS: HEPARIN SODIUM (PORCINE) 5000 UNITS/ML 1ML VIAL SC SCH (07:45)
[2022-05-13 08:29] LABS: % Iron Saturation 10.4 % (15-50)
[2022-05-13 08:49] LABS: Folate (Folic Acid) 23.92 ng/mL (5.38-24)
[2022-05-13 08:53] VITALS: BP 104/72
[2022-05-13 08:54] LABS: Potassium 4.6 mmol/L (3.5-5.1)
[2022-05-13 09:00] LABS: Albumin 2.8 g/dL (3.4-5.0); BUN/Creatinine Ratio 21.9; Bilirubin, Total 0.5 mg/dL (0.2-1.0); Calcium 8.2 mg/dL (8.5-10.1); Total Protein 6.6 g/dL (6.4-8.2)
[2022-05-13] MEDS: FUROSEMIDE 40 MG/4 ML VIAL IV SCH (09:19)
[2022-05-13] MEDS: FAMOTIDINE (10MG/ML) 2ML VL IV SCH (09:40)
[2022-05-13] MEDS: ASPirin-EC 81 mg tab PO SCH (09:41)
[2022-05-13] MEDS: B-COMPLEX W/ C & FOLIC ACID(NEPHROVITE TAB) PO SCH (09:41)
[2022-05-13] MEDS: DOCUSATE SOD 100 MG CAP PO PRN (11:10)
[2022-05-13 13:30] VITALS: BP 136/51
[2022-05-13] MEDS ORDERED: CEFD300C2 PO (16:11)
[2022-05-13 17:00] VITALS: BP 95/74
[2022-05-13 17:06] VITALS: BP 104/72
== END 2022-05-13 17:00 | disposition home or self-care (01) | DRG 871 ==
LOC: ER 15:59 → TELE 23:59 → TELE-CENTR 05-11 13:54
PROVIDERS: ADMIT Nurse Practitioner Family; ATTEND Internal Medicine
DX: A41.9 Sepsis, unspecified organism (principal); I21.A1 Myocardial infarction type 2; N17.0 Acute kidney failure with tubular necrosis; N39.0 Urinary tract infection, site not specified; I13.0 Hypertensive heart and chronic kidney disease with heart failure and stage 1 through stage 4 chronic kidney disease, or unspecified chronic kidney disease; N18.4 Chronic kidney disease, stage 4 (severe); I50.30 Unspecified diastolic (congestive) heart failure; I47.1 Supraventricular tachycardia; E87.1 Hypo-osmolality and hyponatremia; D63.1 Anemia in chronic kidney disease; E11.22 Type 2 diabetes mellitus with diabetic chronic kidney disease; E78.00 Pure hypercholesterolemia, unspecified; E88.09 Other disorders of plasma-protein metabolism, not elsewhere classified; N32.81 Overactive bladder; Z68.32 Body mass index [BMI] 32.0-32.9, adult; E11.51 Type 2 diabetes mellitus with diabetic peripheral angiopathy without gangrene; E66.9 Obesity, unspecified; I25.10 Atherosclerotic heart disease of native coronary artery without angina pectoris; I48.91 Unspecified atrial fibrillation; M79.7 Fibromyalgia; N39.41 Urge incontinence; E03.9 Hypothyroidism, unspecified; Z90.49 Acquired absence of other specified parts of digestive tract; Z90.710 Acquired absence of both cervix and uterus; Z98.891 History of uterine scar from previous surgery; Z91.048 Other nonmedicinal substance allergy status; Z88.8 Allergy status to other drugs, medicaments and biological substances; Z88.2 Allergy status to sulfonamides; Z79.01 Long term (current) use of anticoagulants; Z79.82 Long term (current) use of aspirin; Z80.1 Family history of malignant neoplasm of trachea, bronchus and lung; Z80.6 Family history of leukemia; Z82.49 Family history of ischemic heart disease and other diseases of the circulatory system; Z83.3 Family history of diabetes mellitus; Z87.440 Personal history of urinary (tract) infections; Z87.891 Personal history of nicotine dependence; Z88.1 Allergy status to other antibiotic agents; Z89.422 Acquired absence of other left toe(s); Z95.5 Presence of coronary angioplasty implant and graft; Z20.822 Contact with and (suspected) exposure to COVID-19; Z79.4 Long term (current) use of insulin
CPT/HCPCS: 36415; 71045; 74176; 76775; 80053; 81001; 82140; 82306; 82570; 82607; 82746; 82962; 83036; 83540; 83550; 83690; 83735; 83880; 83970; 84100; 84156; 84300; 84443; 84484; 85025; 86803; 86850; 86900; 86901; 87040; 87086; 87340; 87426; 93005; 96365; 96372; G0378; J0696; J1815; J3490; P9047

== ENCOUNTER 2022-05-17 20:54 | Inpatient (IN) | payer OTHER, MEDICAID ==
[~2022-05-17] VITALS: Ht 167.6 cm; Wt 96.5 kg
[~2022-05-17 20:54] MED LIST changes: +CEFD300C2 PO
[2022-05-17 22:28] LABS: Basophils # (auto) 0 10 ^3/uL (0-0.2); Basophils % (auto) 0.9 % (0.0-2.0); Eosinophils # (auto) 0 10 ^3/uL (0-0.8); Eosinophils % (auto) 0.6 % (0.0-7.0); Hematocrit 26.8 % (36.0-46.0); Hemoglobin 8.7 g/dL (12.2-16.2); Lymphocytes # (auto) 0.6 10 ^3/uL (0.4-5.4); Lymphocytes % (auto) 10.1 % (10.0-50.0); Mean Corpuscular Hemoglobin 30.5 pg (28.0-32.0); Mean Corpuscular Hgb Conc. 32.6 g/dL (32.0-36.0); Mean Corpuscular Volume 93.8 fL (80.0-100.0); Monocytes # (auto) 0.3 10 ^3/uL (0-1.3); Neutrophils # (auto) 4.6 10 ^3/uL (1.6-8.6); Neutrophils % (auto) 83.4 % (37.0-80.0); Nucleated Red Blood Cells % 0.1 %; Red Blood Cells 2.85 10^6/uL (4.0-5.20); Red Cell Distribution Width 17.1 % (11.8-14.3); White Blood Cell 5.5 10^3/uL (4.4-10.8)
[2022-05-17 22:53] LABS: Albumin 3.1 g/dL (3.4-5.0); Calcium 8.6 mg/dL (8.5-10.1); Potassium 5.2 mmol/L (3.5-5.1)
[2022-05-17 22:56] LABS: BUN/Creatinine Ratio 22.7 (10.0-20.0); Bilirubin, Total 0.6 mg/dL (0.2-1.0); Total Protein 7.3 g/dL (6.4-8.2)
[2022-05-18] MEDS ORDERED: HYDROcodone-ACET 5/325MG TAB PO ONE ×2 (00:15→05:00)
[2022-05-18 02:52] LABS: Urine Bacteria FEW /hpf (None Seen); Urine Blood 3+ /uL (Negative); Urine Hyaline Cast FEW /lpf (0 - 2); Urine Mucus FEW (None Seen); Urine Specific Gravity 1.012 (1.001-1.035); Urine WBC 96 /hpf (0 - 5)
[2022-05-18] MEDS ORDERED: CALCIUM GLUC 1,000mg/50ml-NS 50 ML IV ONE (03:45)
[2022-05-18] MEDS ORDERED: DEXTROSE (50%) 50ML SYRG IV ONE (03:45)
[2022-05-18] MEDS ORDERED: LACTATED RINGER'S 1,000 ML IV ONE (03:45)
[2022-05-18] MEDS ORDERED: cefTRIAXone 1GM/50ML D5W 50 ML IV ONE (03:45)
[2022-05-18] MEDS ORDERED: InsuLIN REG 1unit/0.01ml Soln (100units/ml) IV ONE (03:45)
[2022-05-18] MEDS ORDERED: DOCUSATE SOD 100 MG CAP PO PRN (06:45)
[2022-05-18] MEDS ORDERED: DEXTROSE (50%) 50ML SYRG IV PRN (06:45)
[2022-05-18] MEDS ORDERED: ONDANSETRON HCL 4 MG/2 ML VIAL IV PRN (06:45)
[2022-05-18] MEDS ORDERED: NITROGLYCERIN 0.4 MG SL TAB SL PRN (07:30)
[2022-05-18] MEDS ORDERED: MORPHINE SULFATE INJ 2 MG/ml SYRG IV PRN (07:30)
[2022-05-18 07:35] LABS: Basophils # (auto) 0 10 ^3/uL (0-0.2); Eosinophils # (auto) 0 10 ^3/uL (0-0.8); Monocytes # (auto) 0.5 10 ^3/uL (0-1.3); White Blood Cell 6.1 10^3/uL (4.4-10.8)
[2022-05-18 07:37] LABS: Basophils % (auto) 0.4 % (0.0-2.0); Eosinophils % (auto) 0.3 % (0.0-7.0); Hematocrit 25.3 % (36.0-46.0); Hemoglobin 8.3 g/dL (12.2-16.2); Lymphocytes # (auto) 1.2 10 ^3/uL (0.4-5.4); Lymphocytes % (auto) 19.8 % (10.0-50.0); Mean Corpuscular Hemoglobin 30.8 pg (28.0-32.0); Mean Corpuscular Hgb Conc. 32.9 g/dL (32.0-36.0); Mean Corpuscular Volume 93.7 fL (80.0-100.0); Monocytes % (auto) 8.1 % (0.0-12.0); Neutrophils # (auto) 4.3 10 ^3/uL (1.6-8.6); Neutrophils % (auto) 71.4 % (37.0-80.0)
[2022-05-18 07:50] LABS: Albumin 2.9 g/dL (3.4-5.0); Calcium 8.9 mg/dL (8.5-10.1); Potassium 4.7 mmol/L (3.5-5.1)
[2022-05-18 07:56] LABS: BUN/Creatinine Ratio 21.5 (10.0-20.0); Bilirubin, Total 0.5 mg/dL (0.2-1.0); Total Protein 6.9 g/dL (6.4-8.2)
[2022-05-18] MEDS: SODIUM CHLORIDE 0.9% 1,000 ML IV SCH (10:55)
[2022-05-18] MEDS: LEVOTHYROXINE SODIUM 50 MCG TAB PO SCH (10:55)
[2022-05-18] MEDS: PHENAZOPYRIDINE HCL 100 MG TAB PO SCH ×3 (10:55→18:23)
[2022-05-18] MEDS: ASPirin 81 mg TAB PO SCH (10:56)
[2022-05-18] MEDS: FAMOTIDINE (10MG/ML) 2ML VL IV SCH (11:06)
[2022-05-18] MEDS: ACCU-CHEK COMFORT CURVE STRIP VI SCH ×4 (12:13→23:59)
[2022-05-18] MEDS: InsuLIN REG 1unit/0.01ml Soln (100units/ml) SC SCH ×3 (12:40→23:59)
[2022-05-18] MEDS: HYDROcodone-ACET 5/325MG TAB PO PRN (14:41)
[2022-05-19] MEDS: HYDROcodone-ACET 5/325MG TAB PO PRN ×2 (02:02→20:16)
[2022-05-19 05:15] LABS: Basophils # (auto) 0 10 ^3/uL (0-0.2); Basophils % (auto) 0.6 % (0.0-2.0); Eosinophils # (auto) 0.2 10 ^3/uL (0-0.8); Eosinophils % (auto) 3.4 % (0.0-7.0); Hematocrit 25.6 % (36.0-46.0); Hemoglobin 8.5 g/dL (12.2-16.2); Lymphocytes # (auto) 1.7 10 ^3/uL (0.4-5.4); Lymphocytes % (auto) 28.5 % (10.0-50.0); Mean Corpuscular Hemoglobin 31.3 pg (28.0-32.0); Mean Corpuscular Hgb Conc. 33.1 g/dL (32.0-36.0); Mean Corpuscular Volume 94.5 fL (80.0-100.0); Monocytes # (auto) 0.6 10 ^3/uL (0-1.3); Monocytes % (auto) 9.3 % (0.0-12.0); Neutrophils # (auto) 3.5 10 ^3/uL (1.6-8.6); Neutrophils % (auto) 58.2 % (37.0-80.0); Nucleated Red Blood Cells % 0.1 %
[2022-05-19 05:24] LABS: Potassium 4.8 mmol/L (3.5-5.1)
[2022-05-19 05:31] LABS: Albumin 2.9 g/dL (3.4-5.0); Bilirubin, Total 0.4 mg/dL (0.2-1.0); Calcium 8.7 mg/dL (8.5-10.1); Total Protein 6.7 g/dL (6.4-8.2)
[2022-05-19] MEDS: ACCU-CHEK COMFORT CURVE STRIP VI SCH ×4 (05:54→23:15)
[2022-05-19] MEDS: InsuLIN REG 1unit/0.01ml Soln (100units/ml) SC SCH ×4 (05:55→23:15)
[2022-05-19] MEDS: LEVOTHYROXINE SODIUM 50 MCG TAB PO SCH (06:51)
[2022-05-19] MEDS: PHENAZOPYRIDINE HCL 100 MG TAB PO SCH ×3 (08:01→18:16)
[2022-05-19] MEDS: cefTRIAXone 1GM/50ML D5W 50 ML IV SCH (09:55)
[2022-05-19] MEDS: SODIUM CHLORIDE 0.9% 1,000 ML IV SCH ×2 (09:55→16:24)
[2022-05-19] MEDS: ASPirin 81 mg TAB PO SCH (10:26)
[2022-05-19 15:00] VITALS: BP 134/61
[2022-05-19 22:00] VITALS: BP_SYST 126; BP_SYST 138; BP_DIAS 60; BP_DIAS 76
[2022-05-20 05:00] VITALS: BP 125/61
[2022-05-20] MEDS: ACCU-CHEK COMFORT CURVE STRIP VI SCH ×3 (05:23→18:08)
[2022-05-20] MEDS: InsuLIN REG 1unit/0.01ml Soln (100units/ml) SC SCH ×3 (05:23→18:54)
[2022-05-20 06:21] LABS: Calcium 8.7 mg/dL (8.5-10.1); Potassium 4.7 mmol/L (3.5-5.1)
[2022-05-20] MEDS: LEVOTHYROXINE SODIUM 50 MCG TAB PO SCH (06:50)
[2022-05-20] MEDS: SODIUM CHLORIDE 0.9% 1,000 ML IV SCH (06:51)
[2022-05-20 07:30] VITALS: BP 137/65
[2022-05-20] MEDS: FAMOTIDINE (10MG/ML) 2ML VL IV SCH (09:00)
[2022-05-20] MEDS: ASPirin 81 mg TAB PO SCH (09:00)
[2022-05-20] MEDS: cefTRIAXone 1GM/50ML D5W 50 ML IV SCH (09:00)
[2022-05-20 09:18] VITALS: BP 137/65
[2022-05-20] MEDS ORDERED: FLUCONAZOLE 100 MG TAB PO ONE (10:45)
[2022-05-20 12:30] VITALS: BP 131/71
[2022-05-20] MEDS: HYDROcodone-ACET 5/325MG TAB PO PRN ×2 (13:19→21:15)
[2022-05-20 16:35] VITALS: BP 129/66
[2022-05-20] MEDS: PHENAZOPYRIDINE HCL 100 MG TAB PO SCH (21:15)
[2022-05-20] MEDS: TOLTERODINE TARTRATE 1 MG TAB PO SCH (21:15)
[2022-05-20 22:00] VITALS: BP 139/75
[2022-05-21 05:00] VITALS: BP 126/87
[2022-05-21] MEDS: InsuLIN REG 1unit/0.01ml Soln (100units/ml) SC SCH ×2 (05:30→11:45)
[2022-05-21] MEDS: ACCU-CHEK COMFORT CURVE STRIP VI SCH ×2 (05:30→11:44)
[2022-05-21] MEDS: LEVOTHYROXINE SODIUM 50 MCG TAB PO SCH (06:02)
[2022-05-21 06:18] LABS: Basophils # (auto) 0 10 ^3/uL (0-0.2); Basophils % (auto) 0.7 % (0.0-2.0); Eosinophils # (auto) 0.3 10 ^3/uL (0-0.8); Eosinophils % (auto) 4.4 % (0.0-7.0); Hematocrit 26.3 % (36.0-46.0); Hemoglobin 8.3 g/dL (12.2-16.2); Lymphocytes # (auto) 1.4 10 ^3/uL (0.4-5.4); Lymphocytes % (auto) 25.3 % (10.0-50.0); Mean Corpuscular Hemoglobin 30.5 pg (28.0-32.0); Mean Corpuscular Hgb Conc. 31.6 g/dL (32.0-36.0); Mean Corpuscular Volume 96.5 fL (80.0-100.0); Monocytes # (auto) 0.4 10 ^3/uL (0-1.3); Monocytes % (auto) 6.3 % (0.0-12.0); Neutrophils # (auto) 3.6 10 ^3/uL (1.6-8.6); Neutrophils % (auto) 63.3 % (37.0-80.0); Nucleated Red Blood Cells % 0.1 %; Red Blood Cells 2.72 10^6/uL (4.0-5.20); Red Cell Distribution Width 17.1 % (11.8-14.3); White Blood Cell 5.7 10^3/uL (4.4-10.8)
[2022-05-21 06:41] LABS: BUN/Creatinine Ratio 24.2 (10.0-20.0); Calcium 8.5 mg/dL (8.5-10.1); Potassium 4.7 mmol/L (3.5-5.1)
[2022-05-21] MEDS: TOLTERODINE TARTRATE 1 MG TAB PO SCH (08:51)
[2022-05-21] MEDS: ASPirin 81 mg TAB PO SCH (08:51)
[2022-05-21] MEDS: PHENAZOPYRIDINE HCL 100 MG TAB PO SCH (08:51)
[2022-05-21] MEDS: cefTRIAXone 1GM/50ML D5W 50 ML IV SCH (08:52)
[2022-05-21 09:00] VITALS: BP 129/63
[2022-05-21] MEDS ORDERED: FUROSEMIDE 40 MG TAB PO SCH (10:00)
[2022-05-21] MEDS ORDERED: FLUC200T50 PO (10:41)
[2022-05-21 11:57] VITALS: BP 129/63
== END 2022-05-21 15:29 | disposition home or self-care (01) | DRG 760 ==
LOC: ER 20:54 → EDUNIT# 05-18 07:27 → OVERFLOW 05-18 07:27 → TELE-WESTW 05-19 15:33 → WEST WING 05-19 23:21
PROVIDERS: ADMIT Nurse Practitioner Family; ATTEND Internal Medicine
DX: N81.10 Cystocele, unspecified (principal); N17.0 Acute kidney failure with tubular necrosis; E87.1 Hypo-osmolality and hyponatremia; N39.0 Urinary tract infection, site not specified; N18.4 Chronic kidney disease, stage 4 (severe); Z20.822 Contact with and (suspected) exposure to COVID-19; R74.01 Elevation of levels of liver transaminase levels; E11.51 Type 2 diabetes mellitus with diabetic peripheral angiopathy without gangrene; I25.10 Atherosclerotic heart disease of native coronary artery without angina pectoris; I12.9 Hypertensive chronic kidney disease with stage 1 through stage 4 chronic kidney disease, or unspecified chronic kidney disease; E03.9 Hypothyroidism, unspecified; E78.5 Hyperlipidemia, unspecified; E11.22 Type 2 diabetes mellitus with diabetic chronic kidney disease; E11.65 Type 2 diabetes mellitus with hyperglycemia; E66.01 Morbid (severe) obesity due to excess calories; E87.5 Hyperkalemia; Z79.4 Long term (current) use of insulin; Z79.899 Other long term (current) drug therapy; Z79.02 Long term (current) use of antithrombotics/antiplatelets; Z79.82 Long term (current) use of aspirin; Z87.440 Personal history of urinary (tract) infections; Z79.84 Long term (current) use of oral hypoglycemic drugs; Z68.31 Body mass index [BMI] 31.0-31.9, adult
CPT/HCPCS: 36415; 71045; 80048; 80053; 81001; 82962; 83036; 84443; 85025; 86850; 86900; 86901; 87086; 87088; 87426; 96365; 96366; 96368; 96375; 99291; G0378; J0696; J1815; J3490

== ENCOUNTER → 2022-06-04 | Outpatient (CLI) | payer OTHER ==
[~2022-06-04] MED LIST changes: +FLUC200T50 PO; +cefTRIAXone 1GM/50ML D5W 50 ML IV ONE; +cefTRIAXone SOD 1,000 MG VL ONE
[2022-06-04 13:26] VITALS: BP 144/70
[2022-06-04 14:20] VITALS: BP 147/68
== END | disposition home or self-care (01) ==
LOC: CHF HDHVI 13:21
PROVIDERS: ATTEND Internal Medicine Cardiovascular Disease
DX: N39.0 Urinary tract infection, site not specified (principal); A41.9 Sepsis, unspecified organism; I25.10 Atherosclerotic heart disease of native coronary artery without angina pectoris; E78.5 Hyperlipidemia, unspecified; E03.9 Hypothyroidism, unspecified; E66.01 Morbid (severe) obesity due to excess calories; E11.51 Type 2 diabetes mellitus with diabetic peripheral angiopathy without gangrene; I25.2 Old myocardial infarction; E78.00 Pure hypercholesterolemia, unspecified; I13.0 Hypertensive heart and chronic kidney disease with heart failure and stage 1 through stage 4 chronic kidney disease, or unspecified chronic kidney disease; E11.22 Type 2 diabetes mellitus with diabetic chronic kidney disease; N18.4 Chronic kidney disease, stage 4 (severe); I50.30 Unspecified diastolic (congestive) heart failure; Z79.02 Long term (current) use of antithrombotics/antiplatelets; Z68.31 Body mass index [BMI] 31.0-31.9, adult; Z79.82 Long term (current) use of aspirin; Z79.4 Long term (current) use of insulin; Z90.710 Acquired absence of both cervix and uterus; Z90.49 Acquired absence of other specified parts of digestive tract; Z87.891 Personal history of nicotine dependence; Z88.1 Allergy status to other antibiotic agents; Z88.2 Allergy status to sulfonamides; Z79.01 Long term (current) use of anticoagulants; Z79.84 Long term (current) use of oral hypoglycemic drugs; Z79.899 Other long term (current) drug therapy
CPT/HCPCS: 96365; G0463; J0696

== ENCOUNTER 2023-04-15 15:42 | Inpatient (IN) | payer OTHER, MEDICAID ==
[~2023-04-15] VITALS: Ht 165.1 cm; Wt 83.5 kg
[2023-04-15] MEDS: SODIUM CHLORIDE 0.9% 1,000 ML IV SCH (03:00)
[~2023-04-15 15:42] MED LIST changes: -AMIT75TA4 PO; +AMIT75TA6 PO; -cefTRIAXone 1GM/50ML D5W 50 ML IV ONE; -cefTRIAXone SOD 1,000 MG VL ONE
[2023-04-15 17:13] LABS: Urine Bacteria NONE SEEN /hpf (None Seen); Urine Blood 3+ /uL (Negative); Urine Budding Yeast MANY /hpf (None Seen); Urine Clarity CLOUDY (Clear); Urine Color Brown (Yellow); Urine Protein, UAD 2+ (Negative); Urine Urobilinogen Normal (Negative); Urine WBC 816 /hpf (0 - 5); Urine WBC Clumps PRESENT /hpf (None Seen); Urine pH 6.5 (5.0-8.0)
[2023-04-15 17:15] LABS: Urine Specific Gravity 1.023 (1.001-1.035)
[2023-04-15 20:08] LABS: Basophils # (auto) 0 10 ^3/uL (0-0.2); Eosinophils # (auto) 0 10 ^3/uL (0-0.8); Hemoglobin 8.3 g/dL (12.2-16.2); Lymphocytes # (auto) 1.4 10 ^3/uL (0.4-5.4); Monocytes # (auto) 0.4 10 ^3/uL (0-1.3); Neutrophils # (auto) 5.3 10 ^3/uL (1.6-8.6); Neutrophils % (auto) 73.6 % (37.0-80.0); White Blood Cell 7.2 10^3/uL (4.4-10.8)
[2023-04-15 20:10] LABS: Basophils % (auto) 0.2 % (0.0-2.0); Eosinophils % (auto) 0.5 % (0.0-7.0); Hematocrit 24.9 % (36.0-46.0); Lymphocytes % (auto) 19.9 % (10.0-50.0); Mean Corpuscular Hemoglobin 30.9 pg (28.0-32.0); Mean Corpuscular Hgb Conc. 33.4 g/dL (32.0-36.0); Mean Corpuscular Volume 92.5 fL (80.0-100.0); Monocytes % (auto) 5.8 % (0.0-12.0); Red Blood Cells 2.69 10^6/uL (4.0-5.20); Red Cell Distribution Width 13.5 % (11.8-14.3)
[2023-04-15 20:19] LABS: Chloride 101 mmol/L (98-107); Potassium 3.7 mmol/L (3.5-5.1); Sodium 134 mmol/L (136-145)
[2023-04-15 20:20] LABS: Anion Gap 8 (5-15); Calcium 8.5 mg/dL (8.5-10.1); Carbon Dioxide 25 mmol/L (20-30)
[2023-04-15 20:25] LABS: BUN/Creatinine Ratio 12.8 (10.0-20.0); Blood Urea Nitrogen 38 mg/dL (9-23); Glucose 285 mg/dL (74-106)
[2023-04-15 20:33] LABS: Lactic Acid w/Reflex 2.1 mmol/L (0.4-2.0)
[2023-04-15] MEDS ORDERED: DEXTROSE (50%) 50ML SYRG IV PRN (22:15)
[2023-04-16] MEDS ORDERED: ACETAMINOPHEN 325 MG TAB PO PRN (00:45)
[2023-04-16] MEDS: cefTRIAXone 1GM/50ML D5W 50 ML IV ONE (00:47)
[2023-04-16] MEDS: SODIUM CHLORIDE 0.9% 1,000 ML IV ONE (00:48)
[2023-04-16 01:00] VITALS: PULSE 86; RESP 16; O2SAT 98
[2023-04-16 05:18] LABS: Basophils # (auto) 0 10 ^3/uL (0-0.2); Basophils % (auto) 0.3 % (0.0-2.0); Eosinophils # (auto) 0.1 10 ^3/uL (0-0.8); Eosinophils % (auto) 1.2 % (0.0-7.0); Hematocrit 22.9 % (36.0-46.0); Hemoglobin 7.6 g/dL (12.2-16.2); Lymphocytes # (auto) 1.6 10 ^3/uL (0.4-5.4); Mean Corpuscular Hemoglobin 30.6 pg (28.0-32.0); Mean Corpuscular Volume 92.6 fL (80.0-100.0); Monocytes # (auto) 0.4 10 ^3/uL (0-1.3); Monocytes % (auto) 7.4 % (0.0-12.0); Neutrophils # (auto) 3.4 10 ^3/uL (1.6-8.6); Neutrophils % (auto) 61.1 % (37.0-80.0); Red Blood Cells 2.47 10^6/uL (4.0-5.20); Red Cell Distribution Width 13.5 % (11.8-14.3); White Blood Cell 5.5 10^3/uL (4.4-10.8)
[2023-04-16 05:23] LABS: Chloride 104 mmol/L (98-107); Potassium 3.8 mmol/L (3.5-5.1); Sodium 137 mmol/L (136-145)
[2023-04-16 05:24] LABS: Anion Gap 9 (5-15); Carbon Dioxide 24 mmol/L (20-30)
[2023-04-16 05:25] LABS: Calcium 8.2 mg/dL (8.5-10.1)
[2023-04-16 05:29] LABS: Glucose 156 mg/dL (74-106)
[2023-04-16 05:30] LABS: BUN/Creatinine Ratio 13.8 (10.0-20.0); Blood Urea Nitrogen 39 mg/dL (9-23)
[2023-04-16] MEDS: ACCU-CHEK COMFORT CURVE STRIP VI SCH (06:06)
[2023-04-16] MEDS: LEVOTHYROXINE SODIUM 50 MCG TAB PO SCH (06:11)
[2023-04-16] MEDS: SODIUM BICARBONATE 650 MG TAB PO SCH (06:11)
[2023-04-16] MEDS: InsuLIN REG 1unit/0.01ml Soln (100units/ml) SC SCH (06:12)
[2023-04-16] MEDS: LEVOTHYROXINE SODIUM 50 MCG TAB ONE (06:12)
[2023-04-16] MEDS: SODIUM BICARBONATE 650 MG TAB ONE (06:13)
[2023-04-16] MEDS: InsuLIN REG 1unit/0.01ml Soln (100units/ml) ONE ×2 (06:13→11:50)
[2023-04-16] MEDS: ASPirin 81 mg TAB PO SCH (10:00)
[2023-04-16] MEDS: TICAGRELOR 90 MG TAB PO SCH (10:00)
[2023-04-16] MEDS: PANTOPRAZOLE 40 MG TAB PO SCH (10:00)
[2023-04-16 14:46] VITALS: PULSE 87; RESP 20; O2SAT 96
[2023-04-16] MEDS: HYDROcodone-ACET 5/325MG TAB PO PRN (15:05)
[2023-04-16] MEDS ORDERED: CEFT1INJ17 IV (18:26)
[2023-04-16] MEDS ORDERED: HYDR-4902 PO (18:42)
[2023-04-16 19:30] VITALS: PULSE 88; RESP 19; O2SAT 98
[2023-04-16 21:48] VITALS: BP 157/51; PULSE 80; RESP 22; TEMP 98.3; O2SAT 98
== END 2023-04-16 22:00 | disposition home or self-care (01) | DRG 690 ==
LOC: ER 15:42 → TELE 04-16 00:54 → ER 04-16 00:54
PROVIDERS: ADMIT Internal Medicine; ATTEND Internal Medicine
PROC: 05H933Z Insertion of Infusion Device into Right Brachial Vein, Percutaneous Approach (ICD-10-PCS; principal; 2023-04-16)
PROC: B54MZZA Ultrasonography of Right Upper Extremity Veins, Guidance (ICD-10-PCS; 2023-04-16)
DX: N30.01 Acute cystitis with hematuria (principal); E87.20 Acidosis, unspecified; N17.9 Acute kidney failure, unspecified; G47.00 Insomnia, unspecified; E78.5 Hyperlipidemia, unspecified; E03.9 Hypothyroidism, unspecified; N32.89 Other specified disorders of bladder; N18.30 Chronic kidney disease, stage 3 unspecified; K21.9 Gastro-esophageal reflux disease without esophagitis; I25.10 Atherosclerotic heart disease of native coronary artery without angina pectoris; F32.9 Major depressive disorder, single episode, unspecified; E11.22 Type 2 diabetes mellitus with diabetic chronic kidney disease; Z88.2 Allergy status to sulfonamides; Z88.1 Allergy status to other antibiotic agents; Z91.048 Other nonmedicinal substance allergy status; Z88.8 Allergy status to other drugs, medicaments and biological substances; Z82.49 Family history of ischemic heart disease and other diseases of the circulatory system; Z79.82 Long term (current) use of aspirin; Z80.1 Family history of malignant neoplasm of trachea, bronchus and lung; Z80.6 Family history of leukemia
CPT/HCPCS: 36415; 72170; 74176; 80048; 81001; 82962; 83605; 85025; 87086; 87088; 87186; G0378; J1815